=== PATIENT | male | born 1975 | race Caucasian/White ===

== ENCOUNTER 2016-07-26 18:35 | Emergency (ER) | payer MEDICARE ==
[~2016-07-26] VITALS: Ht 188 cm; Wt 84.1 kg
[~2016-07-26 18:35] MED LIST: AMT25T PO; ATOR20TA PO; KEP500TA PO; LORA-303 PO; MECL12.5 PO; METO25TA6 PO; MS15TCR PO; ONDA4TAB9 PO; ONDANSETRON PO; PROM25TA14 PO; QUET25TA73 PO; SULF1TAB7 PO; VENL37.57 PO; VENL50TA3 PO; VENL75TA3 PO; vit d3 PO
[2016-07-26 18:47] VITALS: BP 139/89; RESP 16; O2SAT 99
--- NOTE | 2016-07-26 20:20 | ED.REPORT ---
HPI-Sore Throat ONLY HPI/PE done July 26, 2016 ED Provider: Juancho Gudino MD A 41 year old male with a medical history including CAD, osteosarcoma, osteomyelitis, seizure disorder, and chronic pain presents to the ED with a sore throat onset three days ago. The pain is worst on the left. Associated symptoms include subjective fever and chills. The patient denies cough or other symptoms. Nursing Notes Stated Complaint: SORE THROAT Chief Complaint: ENT & Mouth Nursing Notes Reviewed: Yes ([employer], [employer] not reconciled) Allergies: Coded Allergies: Penicillins (Verified Allergy, Unknown, 07/26/16) oxycodone HCl (Verified Allergy, Unknown, 07/26/16) Uncoded Allergies: BEE STINGS (Allergy, Unknown, 08/22/13) CHOCOLATE (Allergy, Unknown, 08/22/13) Scheduled ([odansetron hcl]) Unknown Dose PO DAILY ([vit d3]) 1,000 IU PO BID Amitriptyline (Amitriptyline) 25 Mg Tab 25 MG PO HS Atorvastatin (Lipitor) 20 Mg Tablet 20 MG PO DAILY Levetiracetam (Keppra) 500 Mg Tablet 500 MG PO BID Lorazepam (Ativan) 1 Mg Tablet 1 MG PO HS Metoprolol Tartrate (Metoprolol Tartrate) 25 Mg Tablet 12.5 MG PO BID Morphine Sulfate ER (MS Contin) 15 Mg Tablet.er 15 MG PO DAILY Quetiapine Fumarate (Quetiapine Fumarate) 25 Mg Tablet 50 MG PO HS Sulfamethoxazole/Trimeth 800-160 mg (Bactrim DS) 1 Each Tablet 1 TABLET PO DAILY Venlafaxine (Venlafaxine) 75 Mg Tablet 75 MG PO BIDWM Venlafaxine (Venlafaxine) 37.5 Mg Tablet 37.5 MG PO MORNING Venlafaxine (Venlafaxine) 50 Mg Tablet 50 MG PO NOON Scheduled PRN Meclizine (Antivert) 12.5 Mg Tablet Unknown Dose PO BID PRN PRN motion sickness Ondansetron ODT (Zofran ODT) 4 Mg Tablet 4 MG PO Q4H PRN PRN For Nausea Promethazine (Promethazine) 25 Mg Tablet 25 MG PO Q6H PRN PRN For Nausea/ Vomiting General Time Seen by MD: 20:19 Chief Complaint Sore throat Hx Obtained From: Patient Arrived By: Walk-in Onset Occurred: 3 days ago Symptom Duration: Since onset Location: : Tonsil left: Tonsil right Quality: Painful Severity: Current: Moderate Severity: Maximum: Moderate Pertinent Negative: Relieved by nothing Context: Immunization Status General: Unknown Recent Healthcare: No recent doctor visit Past Medical History Past Medical History 1. History of coronary artery disease with questionable history of UT. Also has a history of some form of arrhythmia on nurse monitoring. 2. 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 After this patient was on suppressant medication for a while, but it has been discontinued. 3. History of osteomyelitis of the left leg where he had the transplant requiring history of chronic IV antibiotics and now chronic Bactrim. According to the patient it has been slightly spreading. 4. History of seizure disorder with grand mal seizures 5. Chronic pain related to his osteosarcoma issues. 6. Depression. 7. History of familial hypertriglyceridemia and he has hypertriglyceridemia himself 8. Vitamin D deficiency. Reports: Cancer Past Surgical History 1. Port placement and removal. 2. Left femur surgery. 3. Cholecystectomy. 4. Left and right knee surgeries. 5. Testicle surgery bilaterally when he was a kid. 6. Heart cath May 2015 Smoking History Current Every Day Smoker Social History Alcohol Use: Denies alcohol use Drug Use: Denies drug use Ambulatory Status Independent Review of Systems Constitutional: Reports: Chills, Fever (Subjective) Ears / Nose / Throat: Reports: Sore throat Respiratory: Denies: Non-productive cough, Shortness of breath GI: Denies: Diarrhea, Vomiting Complete sys rev & neg: except as marked. Physical Exam Initial Vital Signs Vital Signs (First) Date Time Temp Pulse Resp B/P Pulse Ox O2 Delivery O2 Flow Rate FiO2 07/26/16 18:47 36.0 71 16 139/89 99 Room Air Initial VS: Reviewed, Vital signs normal Skin: Warm, Dry Neurologic: Alert, Oriented Psychiatric: Mood/affect normal, Behavior normal General/Constitutional: Awake, Alert, No acute distress, Well appearing ENT: Airway patent, Mucous membranes moist, Pharynx NL, No peritonsillar abscess Voice mildly hoarse Neck: Supple, Full range of motion, No adenopathy, No swelling Neck / Muscle Tenderness: Positive: Paraspinal R... (Mild) Head / Eyes: Atraumatic, Normocephalic Respiratory / Chest: Breath sounds NL, Breath sounds = bilat, No respiratory distress Cardiovascular: Heart rate NL, Regular rhythm, Heart sounds NL Interpretation & Diagnostics RAPID STREP: Negative Re-Eval/Medical Decision Med Decision/Clinical Course This is a 41-year-old male presents with partner. The patient's partner had come in for seizure and concern for pneumonia, this patient's had 2 day history of a sore throat, slightly worse on the left side, without a fever. He has poor dentition, but no markers of an odontogenic abscess, no findings of blood was, I do not appreciate any peritonsillar abscess, or overt tonsillar exudate area there is no cervical adenopathy. The rest of exam is normal. He is on chronic Bactrim for some sort of lower extremity skin/tissue infection. A rapid strep was negative. Elective chin with a dose of steroids given his concerns, but not finding indication for additional antibiotic therapy at this time. Suspect viral etiology. There is no evidence of an acute surgical or major infectious emergency. Patient's discharged in stable condition. Source of Hx: Old records Re-Evaluation/Progress : Time of Eval: 21:46 Patient Status: Condition improved Re-Evaluation/Progress Note: Discussed with patient lab results, diagnosis, and plan for discharge. Follow-up and return to the ER instructions given. Patient agrees with plan for care and all questions were addressed. Differential Diagnosis: Positive: Pharyngitis, acute, Pharyngitis, viral, Negative: Aphthous ulcer, Bacterial tracheitis, Caustic ingestion, Dental abscess, Epiglottitis, Herpangina, Herpetic stomatitis, Infectious mononucleosis , Billy's angina, Parotitis, Peritonsillar abscess, Peritonsillar cellulitis, Retropharyngeal abscess, Strep throat, Tonsillitis, acute, Uvulitis Counseled Regarding: Diagnosis, Lab results, Need for follow-up, When/why to return to ED Discharge & Departure Primary Impression: Pharyngitis Pharyngitis/tonsillitis etiology: unspecified etiology Qualified Code: J02.9 - Acute pharyngitis, unspecified Disposition: Home Discharge Condition All VS Reviewed: Yes Condition: Improved Additional Instructions: 1. Your strep test was negative. 2. I am not finding markers of a bacterial infection that would benefit from additional antibiotics. 3. You received a dose of dexamethasone in the ED. Take the remaining dose of dexamethasone (10mg) tomorrow. 4. Symptoms are expected to improve with time. [facility]: [facility] ([facility] Scribe Attestation Portions of this note were transcribed by Carole Jay. I, Dr. Gudino, personally performed the history, physical exam, and medical decision-making; I reviewed and confirmed the accuracy of the information in the transcribed note. Signed by: Eliza Myers, 07/26/2016, 22:55 copies to: [facility] Juancho Gudino MD July 26, 2016 20:20 CAROLE JAY July 26, 2016 20:45
[2016-07-26] MEDS ORDERED: Dexamethasone 20 mg/2 mL Oral Solution PO ONE (20:45)
== END 2016-07-26 22:07 | disposition home or self-care (01) ==
LOC: SED 18:35
DX: J02.9 Acute pharyngitis, unspecified (principal); R50.9 Fever, unspecified; F17.200 Nicotine dependence, unspecified, uncomplicated; Z88.0 Allergy status to penicillin; Z88.5 Allergy status to narcotic agent